=== PATIENT | male | born 1960 | race Caucasian/White ===

== ENCOUNTER 2020-03-27 01:33 | Emergency (ER) | payer MEDICARE ==
[~2020-03-27] VITALS: Ht 182.9 cm; Wt 134.7 kg
[~2020-03-27 01:33] MED LIST: ASPI81EC PO; CEPH500 PO; CRUTCH3 USE; DICL75ER PO; GLIM2 PO; HYDACE5 PO; LOVA20 PO; OXYACE5T PO; PIOG45 PO; RAMI5 PO; TRAACE PO; [UNRECOGNIZED DRUG - OTHER]
[2020-03-27] MEDS ORDERED: METO50 PO (02:12)
[2020-03-27] MEDS ORDERED: LISI20 PO (02:12)
[2020-03-27] MEDS ORDERED: LORA10ER PO (02:13)
[2020-03-27] MEDS ORDERED: CEFP200 PO (03:13)
== END 2020-03-27 03:50 | disposition home or self-care (01) ==
LOC: ER 01:33
DX: L03.011 Cellulitis of right finger (principal); S61.234A Puncture wound without foreign body of right ring finger without damage to nail, initial encounter; E11.9 Type 2 diabetes mellitus without complications; I10 Essential (primary) hypertension; Z23 Encounter for immunization; Z88.0 Allergy status to penicillin; Z88.8 Allergy status to other drugs, medicaments and biological substances; Z79.82 Long term (current) use of aspirin; Z79.899 Other long term (current) drug therapy; W29.8XXA Contact with other powered hand tools and household machinery, initial encounter
CPT/HCPCS: 73120; 90471; 90714; 99283-25; A9270

== ENCOUNTER → 2021-02-10 | Outpatient (CLI) | payer MEDICARE ==
[~2021-02-10] MED LIST changes: +CEFP200 PO; +LISI20 PO; +LORA10ER PO; +METO50 PO
== END ==
LOC: LAB SHORT 10:50
DX: L08.9 Local infection of the skin and subcutaneous tissue, unspecified (principal); C43.62 Malignant melanoma of left upper limb, including shoulder; Z48.817 Encounter for surgical aftercare following surgery on the skin and subcutaneous tissue; Z88.0 Allergy status to penicillin; Z88.8 Allergy status to other drugs, medicaments and biological substances
CPT/HCPCS: 87070; 87106; 87205

== ENCOUNTER 2021-04-03 06:03 | Day surgery (SDC) | payer MEDICARE | END 2021-04-03 23:44 | disposition home or self-care (01) | LOC: WOUND 06:03 | DX: C43.62 Malignant melanoma of left upper limb, including shoulder (principal); E11.628 Type 2 diabetes mellitus with other skin complications; I10 Essential (primary) hypertension; Z88.0 Allergy status to penicillin; Z88.1 Allergy status to other antibiotic agents; Z79.4 Long term (current) use of insulin; Z88.8 Allergy status to other drugs, medicaments and biological substances | CPT/HCPCS: G0463 ==

== ENCOUNTER → 2022-01-15 | Outpatient (CLI) | payer MEDICARE | END | disposition home or self-care (01) | LOC: LAB SHORT 10:30 → LAB 10:30 | DX: L08.9 Local infection of the skin and subcutaneous tissue, unspecified (principal) | CPT/HCPCS: 87070; 87075; 87077; 87186; 87205 ==

== ENCOUNTER → 2022-04-01 | Outpatient (CLI) | payer MEDICARE | END | disposition home or self-care (01) | LOC: LAB SHORT 10:22 → LAB 10:22 | DX: Z08 Encounter for follow-up examination after completed treatment for malignant neoplasm (principal); L97.819 Non-pressure chronic ulcer of other part of right lower leg with unspecified severity; L08.9 Local infection of the skin and subcutaneous tissue, unspecified; R60.0 Localized edema; Z85.820 Personal history of malignant melanoma of skin | CPT/HCPCS: 87070; 87077; 87186; 87205 ==

== ENCOUNTER 2022-06-21 09:29 | Emergency (ER) | payer MEDICARE ==
[~2022-06-21] VITALS: Ht 177.8 cm; Wt 144.7 kg
[2022-06-21 10:46] LABS: BASOPHILS ABSOLUTE AUTO 0.14 K/mm3 (0.00-0.23); BASOPHILS PERCENT AUTO 1 % (0-2); EOSINOPHILS ABSOLUTE AUTO 0.57 K/mm3 (0.00-0.68); EOSINOPHILS PERCENT AUTO 4 % (0-6); Hematocrit 37.6 % (37.0-53.0); IMMATURE GRAN ABSOLUTE AUTO 0.07 K/mm3 (0.00-0.10); IMMATURE GRAN PERCENT AUTO 1 % (0-1); LYMPHOCYTES ABSOLUTE AUTO 2.13 K/mm3 (0.84-5.20); LYMPHOCYTES PERCENT AUTO 15 % (21-46); MONOCYTES ABSOLUTE AUTO 1.16 K/mm3 (0.16-1.47); MONOCYTES PERCENT AUTO 8 % (4-13); Mean Corpuscular HGB 29.1 pg (26.0-34.0); Mean Corpuscular HGB Conc 31.9 g/dL (31.5-36.5); Mean Corpuscular Volume 91 fL (80-100); Mean Platelet Volume 9.8 fL (9.1-12.4); NEUTROPHILS PERCENT AUTO 71 % (41-73); Platelet Count 352 K/mm3 (150-400); RDW Coefficient Variation 14.5 % (11.7-14.2); RDW Standard Deviation 48.7 fL (35.1-46.3); Red Blood Cell Count 4.12 M/mm3 (4.30-5.90); White Blood Cell Count 13.87 K/mm3 (4.00-11.30)
[2022-06-21 11:04] LABS: Albumin, Blood 3.7 g/dL (3.4-5.0); Albumin/Globulin Ratio 0.7 (0.8-1.8); Bilirubin, Total 0.3 mg/dL (0.1-1.0); Bun/Creatinine Ratio 20.8 (12.0-20.0); Calcium, Blood 9.9 mg/dL (8.5-10.1); Creatinine, Blood 1.49 mg/dL (0.60-1.20); Globulin, Blood 5.2 g/dL (2.2-4.0); Potassium, Blood 3.8 mmol/L (3.5-5.5); Total Protein, Blood 8.9 g/dL (6.4-8.2)
== END 2022-06-21 11:42 | disposition home or self-care (01) ==
LOC: ER 09:29
PROVIDERS: Family Medicine
DX: N14.19 Nephropathy induced by other drugs, medicaments and biological substances (principal); T45.1X5A Adverse effect of antineoplastic and immunosuppressive drugs, initial encounter; E11.9 Type 2 diabetes mellitus without complications; I10 Essential (primary) hypertension; Z88.0 Allergy status to penicillin; Z88.8 Allergy status to other drugs, medicaments and biological substances; Z79.899 Other long term (current) drug therapy; Z79.4 Long term (current) use of insulin; Z79.82 Long term (current) use of aspirin; Z87.891 Personal history of nicotine dependence
CPT/HCPCS: 80053; 85025

== ENCOUNTER 2023-07-11 12:22 | Day surgery (SDC) | payer MEDICARE ==
[~2023-07-11] VITALS: Ht 177.8 cm; Wt 138.7 kg
[~2023-07-11 12:22] MED LIST changes: +Lactated Ringer's 1,000 ML IV ONE
[2023-07-11] MEDS ORDERED: CeFAZolin Sodium 3,000 MG in NS 100 ML IV SCH (12:50)
[2023-07-11] MEDS ORDERED: AMLO5 (12:51)
[2023-07-11] MEDS ORDERED: LEVEMIR100 UNIT/1 (12:52)
[2023-07-11] MEDS ORDERED: NOVOLOG FL100 UNIT/2 (12:53)
[2023-07-11] MEDS ORDERED: Hydrocodone-Ap1 EA26 (12:54)
[2023-07-11] MEDS ORDERED: CHLO25B (12:55)
[2023-07-11] MEDS ORDERED: FentaNYL Citrate 50 MCG/ML 2 ML Injection ONE (13:07)
[2023-07-11] MEDS ORDERED: Lactated Ringer's 1,000 ML IV ONE (13:13)
[2023-07-11] MEDS ORDERED: Midazolam HCl 1MG / ML 2ML Vial ONE (13:40)
[2023-07-11 14:25] VITALS: BP 147/75
--- NOTE | 2023-07-11 15:01 | NUR ---
07/11/23 1501 Gabriele Headley PT REMAINED FREE OF PAIN COMPLAINT THROUGH TIME OF DISCHARGE
== END 2023-07-11 15:00 | disposition home or self-care (01) ==
LOC: ORSCSDS 12:22
PROVIDERS: Orthopaedic Surgery
PROC: 01N50ZZ Release Median Nerve, Open Approach (ICD-10-PCS; principal; 2023-07-11 13:45)
DX: G56.02 Carpal tunnel syndrome, left upper limb (principal); I10 Essential (primary) hypertension; E11.9 Type 2 diabetes mellitus without complications; E66.01 Morbid (severe) obesity due to excess calories; Z68.41 Body mass index [BMI] 40.0-44.9, adult; Z79.899 Other long term (current) drug therapy
CPT/HCPCS: 82947; J0690; J2250; J3010; J7120

== ENCOUNTER 2023-09-05 11:13 | Day surgery (SDC) | payer MEDICARE ==
[~2023-09-05] VITALS: Ht 177.8 cm; Wt 138.1 kg
[~2023-09-05 11:13] MED LIST changes: +AMLO5; +CHLO25B; +Hydrocodone-Ap1 EA26; +LEVEMIR100 UNIT/1; +NOVOLOG FL100 UNIT/2
--- NOTE | 2023-09-05 13:02 | NUR ---
09/05/23 8136 Elina West [id number] TIME OUT TAKEN TO VERIFY CORRECT PT, PROCEDURE, LOCATION AND ALLERGIES. PT TOLERATED BLOCK WELL.
[2023-09-05] MEDS ORDERED: Lactated Ringer's 1,000 ML IV ONE ×2 (13:19→13:22)
[2023-09-05] MEDS ORDERED: CeFAZolin Sodium 2,000 MG VIAL ONE (13:21)
[2023-09-05] MEDS ORDERED: NS 0 ML IV ONE (13:22)
[2023-09-05] MEDS ORDERED: NS 50 ML IV ONE (13:28)
[2023-09-05] MEDS ORDERED: CeFAZolin Sodium 1000 mg Vial ONE ×2 (13:28→13:30)
--- NOTE | 2023-09-05 14:41 | NUR ---
09/05/23 1441 Javier Anderson PT ADVISED TO MONITOR B/P AT HOME, AND FOLLOW UP WITH PCP IF NEEDED.
[2023-09-05 14:43] VITALS: BP 152/74
== END 2023-09-05 14:30 | disposition home or self-care (01) ==
LOC: ORSCSDS 11:13
PROVIDERS: Orthopaedic Surgery
PROC: 01N50ZZ Release Median Nerve, Open Approach (ICD-10-PCS; principal; 2023-09-05 13:00)
DX: G56.01 Carpal tunnel syndrome, right upper limb (principal); E11.9 Type 2 diabetes mellitus without complications; I10 Essential (primary) hypertension; G47.33 Obstructive sleep apnea (adult) (pediatric); Z68.41 Body mass index [BMI] 40.0-44.9, adult; Z79.4 Long term (current) use of insulin; Z79.899 Other long term (current) drug therapy
CPT/HCPCS: 82947; J0690; J7120

== ENCOUNTER → 2025-02-27 | Outpatient (CLI) | payer MEDICARE ==
[~2025-02-27] MED LIST changes: -Lactated Ringer's 1,000 ML IV ONE
== END ==
LOC: LAB 13:38 → LAB SHORT 13:38
DX: L08.9 Local infection of the skin and subcutaneous tissue, unspecified (principal); S91.104A Unspecified open wound of right lesser toe(s) without damage to nail, initial encounter; S91.301A Unspecified open wound, right foot, initial encounter
CPT/HCPCS: 87070; 87077; 87186